=== PATIENT | male | born 1945 | race Caucasian/White ===

== ENCOUNTER 2017-12-06 12:10 | Emergency (ER) | payer MEDICARE, BC ==
[2017-12-06] MEDS ORDERED: Diph,Pert(Acell),Tet Vac 0.5 ML SYR IM ONE (12:28)
--- NOTE | 2017-12-06 12:30 | Emergency Department Record ---
History of Present Illness - General Chief Complaint: Wound, puncture Stated Complaint: PUNCTURE WOUND R FOREARM Time Seen by Provider: 12/06/17 12:23 Source: Patient Mode of Arrival: Ambulatory Limitations: No limitations - History of Present Illness Initial Commments: The patient is here due to a R forearm lac which occurred about 3-4 hours ago. He got it caught on a tailgate latch. He denies any distal R arm numbness or tingling. His Td is not UTD. Onset/Timin -: Hour(s) - [place] Coma Scale Eye Response: (4) Open spontaneously Motor Response: (6) Obeys commands Verbal Response: (5) Oriented Aime Total: 15 - Related Data Patient Tetanus UTD (within 5 yrs): No Previous Rx's Medication Instructions Recorded Gentamicin Sulfate [Garamycin] 2 drop AFFEYE QID #1 ml 09/03/15 Cephalexin [Keflex] 500 mg PO TID #21 cap 12/06/17 Allergies Allergy/AdvReac Type Severity Reaction Status Date / Time No Known Drug Allergies Allergy Verified 09/03/15 09:31 Travel Screening - Travel/Exposure Within Last 30 Days Have you traveled within the last 30 days?: No - Travel/Exposure Within Last Year Have you traveled outside the [place] in the last year?: No - Additonal Travel Details Have you been exposed to anyone with a communicable illness?: No - Travel Symptoms Symptom Screening: None Review of Systems Constitutional: Denies: Chills, Fever Eyes: Denies: Eye discharge ENT: Denies: Congestion Respiratory: Denies: Cough, Dyspnea Past Medical History - SOCIAL HISTORY Smoking Status: Former smoker Alcohol Use: None Drug Use: None - RESPIRATORY Hx Respiratory Disorders: Yes Hx COPD: Yes Comment:: with home O2 - CARDIOVASCULAR Hx Cardio Disorders: No - NEURO Hx Neuro Disorders: No - GI Hx GI Disorders: No - Hx Genitourinary Disorders: No - ENDOCRINE Hx Endocrine Disorders: No - MUSCULOSKELETAL Hx Musculoskeletal Disorders: Yes Hx Arthritis: Yes - PSYCH Hx Psych Problems: Yes Hx Anxiety: Yes Hx Depression: Yes - HEMATOLOGY/ONCOLOGY Hx Hematology/Oncology Disorders: No Family Medical History Any Significant Family History?: Yes Hx Alcohol Use: Father, Brother/Sister Physical Exam - General General Appearance: Alert, Cooperative, No acute distress - Head Head exam: Atraumatic, Normocephalic - Extremities Extremities exam: Full ROM, Tenderness (only around the lac site.). negative: Normal inspection (There is a 2 cm flap lac to the medial R forearm. The R arm is NVI distally. ), Joint swelling - Neurological Neurological exam: Alert. negative: Motor sensory deficit Course Vital Signs 12/06/17 12:15 Temperature 98.4 F Pulse Rate 70 Respiratory 18 Rate Blood Pressure 134/88 Pulse Ox 91 L - Reevaluation(s) Reevaluation #1: Procedure note: The R arm lac was anesth. with 3 cc's lido 1% with Epi. The lac was prepped with betadine and lavaged with sterile saline. The wound was explored and no FB or tendon or muscle lac was seen. The lac edges were minimally debrided and closed with 5 4.0 nylon sutures. There were no complications. 12/06/17 12:48 Disposition Disposition: Discharge Clinical Impression: Laceration of forearm Qualifiers: Encounter type: initial encounter Laterality: right Qualified Code(s): S51.811A - Laceration without foreign body of right forearm, initial encounter Disposition: Home, Self-Care Condition: (2) Stable Instructions: Laceration (ED) Additional Instructions: Keep the dressing in place and dry for 2 days then wash daily with no soaking or swimming. Take the Keflex as directed and have the sutures removed in 10 days. Return to the ER for any signs of infection. Prescriptions: Cephalexin [Keflex] 500 mg PO TID #21 cap Forms: Patient Portal Access Time of Disposition: 12:51 Quality - Quality Measures Quality Measures: N/A - Blood Pressure Screening View Details: Yes Does Patient Have Any of the Following: No Blood Pressure Classification: Pre-Hypertensive BP Reading Systolic Measurement: 134 Diastolic Measurement: 88 Screening for High Blood Pressure: < Pre-Hypertensive BP, F/U Documented > [ G8950] Pre-Hypertensive Follow-up Interventions: Referral to alternative/primary care provider.
== END 2017-12-06 13:05 | disposition home or self-care (01) ==
LOC: ER 12:10
DX: S51.811A Laceration without foreign body of right forearm, initial encounter (principal); W23.1XXA Caught, crushed, jammed, or pinched between stationary objects, initial encounter; J44.9 Chronic obstructive pulmonary disease, unspecified; Z99.81 Dependence on supplemental oxygen; Z87.891 Personal history of nicotine dependence
CPT/HCPCS: 12001; 90715; 96372; 99283

== ENCOUNTER 2019-01-26 13:36 | Emergency (ER) | payer MEDICARE ==
[2019-01-26] MEDS ORDERED: ALBUTEROL SULFATE (0.083%) 2.5 MG/3 ML NEB INH ONE (13:47)
[2019-01-26] MEDS ORDERED: IPRATROPIUM/ALBUTEROL (0.5MG/3MG) NEB INH ONE (13:47)
[2019-01-26] MEDS ORDERED: METHYLPREDNISOLONE PF 125MG/VIAL IVP ONE (13:47)
[2019-01-26] MEDS ORDERED: ALBUTEROL (0.5% CONCENTRATED) 2.5 MG/0.5 ML VIAL.NEB INH ONE ×2 (13:54→14:09)
[2019-01-26 14:02] LABS: ABSOLUTE NEUTROPHIL COUNT 19.32; BASO % 0.1 % (0-6); HEMATOCRIT 47.7 % (42.0-52.0); HEMOGLOBIN 14.4 gm/dl (14.0-18.0); LYMPH % 5.4 % (16-45); MEAN CELL VOLUME 97.7 fl (81-97); MEAN CORPUSCULAR HEMOGLOBIN 29.5 pg (27-33); MEAN CORPUSCULAR HGB CONC 30.2 g/dl (32-36); MEAN PLATELET VOLUME 10.2 fl (7.4-10.4); MONO % 7.5 % (0-9); PLATELET COUNT 291 K/uL (130-400); RED BLOOD COUNT 4.88 M/uL (4.40-5.70)
[2019-01-26 14:09] LABS: BLOOD UREA NITROGEN 18 mg/dL (8-23); CREATININE 0.7 mg/dL (0.7-1.2); EST GLOMERULAR FILTRATION RATE > 60 mL/min
[2019-01-26 14:10] LABS: TOTAL PROTEIN 8.1 g/dL (6.6-8.7)
[2019-01-26 14:12] LABS: GLUCOSE,RANDOM 127 mg/dL (74-109)
[2019-01-26 14:14] LABS: ALB/GLOB RATIO 1.2 (1.1-1.8); ALBUMIN 4.4 g/dL (4.0-5.0); ALT/SGPT 12 U/L (<41); AST/SGOT 23 U/L (10.0-50.0)
[2019-01-26 14:20] LABS: WHITE BLOOD COUNT W/O DIFF 22.2 K/uL (4.2-12.2)
--- NOTE | 2019-01-26 15:34 | Emergency Department Record ---
History of Present Illness - General Chief Complaint: Difficulty Breathing Time Seen by Provider: 01/26/19 13:41 Source: Patient, Family Mode of Arrival: Wheelchair Limitations: No limitations - History of Present Illness Initial Comments: pt came in for increasing sob since this am. he has a hx of copd. he wears 3.5 ltrs O2. he denies fevers MD Complaint: Cough, Shortness of breath Onset/Timin -: Days(s) Improves With: Bronchodilators Worsens With: Exertion Known History Of: COPD Associated Symptoms: Cough, Sputum production Treatments Prior to Arrival: Bronchodilator - Related Data Home Oxygen Therapy: Yes Home Oxygen Amount: 3 Liters Home Medications Medication Instructions Recorded Confirmed Last Taken Albuterol Sulfate 0.083% [Neb] 1 inh INH ASDIR 01/26/19 01/26/19 01/25/19 [Albuterol Sulfate] Citalopram Hydrobromide 20 mg PO DAILY 01/26/19 01/26/19 Unknown [Citalopram HBr] Previous Rx's Medication Instructions Recorded Amoxicillin/Potassium Clav 1 tab PO BID #20 tab 01/26/19 [Augmentin 875-125 Tablet] Allergies Allergy/AdvReac Type Severity Reaction Status Date / Time No Known Drug Allergies Allergy Verified 01/26/19 13:44 Travel Screening - Travel/Exposure Within Last 30 Days Have you traveled within the last 30 days?: No Review of Systems Reviewed: No additional complaints except as noted below Constitutional: Reports: As per HPI. Denies: Chills, Fever, Malaise, Night sweats, Weakness, Weight change Eyes: Reports: As per HPI. Denies: Eye discharge, Eye pain, Photophobia, Vision change ENT: Reports: As per HPI. Denies: Congestion, Dental pain, Ear pain, Epistaxis, Hearing loss, Throat pain Respiratory: Reports: As per HPI, Cough, Dyspnea. Denies: Hemoptysis, Stridor, Wheezes Cardiovascular: Reports: As per HPI. Denies: Arrhythmia, Chest pain, Dyspnea on exertion, Edema, Murmurs, Orthopnea, Palpitations, Paroxysmal nocturnal dyspnea, Rheumatic Fever, Syncope Endocrine: Reports: As per HPI. Denies: Fatigue, Heat or cold intolerance, Polydipsia, Polyuria Gastrointestinal: Reports: As per HPI. Denies: Abdominal pain, Constipation, Diarrhea, Hematemesis, Hematochezia, Melena, Nausea, Vomiting Genitourinary: Reports: As per HPI. Denies: Dysuria, Frequency, Hematuria, Incontinence, Retention, Testicular pain, Testicular mass, Urgency Musculoskeletal: Reports: As per HPI. Denies: Arthralgia, Back pain, Gout, Joint swelling, Myalgia, Neck pain Skin: Reports: As per HPI. Denies: Bruising, Change in color, Change in hair/nails, Lesions, Pruritus, Rash Neurological: Reports: As per HPI. Denies: Abnormal gait, Confusion, Headache, Numbness, Paresthesias, Seizure, Tingling, Tremors, Vertigo, Weakness Psychiatric: Reports: As per HPI. Denies: Anxiety, Auditory hallucinations, Depression, Homicidal thoughts, Suicidal thoughts, Visual hallucinations Hematological/Lymphatic: Reports: As per HPI. Denies: Anemia, Blood Clots, Easy bleeding, Easy bruising, Swollen glands Past Medical History - SOCIAL HISTORY Smoking Status: Former smoker Alcohol Use: None Drug Use: None - RESPIRATORY Hx Respiratory Disorders: Yes Hx COPD: Yes Comment:: with home O2 - CARDIOVASCULAR Hx Cardio Disorders: No - NEURO Hx Neuro Disorders: No - GI Hx GI Disorders: No - Hx Genitourinary Disorders: No - ENDOCRINE Hx Endocrine Disorders: No - MUSCULOSKELETAL Hx Musculoskeletal Disorders: Yes Hx Arthritis: Yes - PSYCH Hx Psych Problems: Yes Hx Anxiety: Yes Hx Depression: Yes - HEMATOLOGY/ONCOLOGY Hx Hematology/Oncology Disorders: No Family Medical History Any Significant Family History?: Yes Hx Alcohol Use: Father, Brother/Sister Physical Exam - General General Appearance: Alert, Oriented x3, Cooperative, Mild distress - Head Head exam: Normal inspection - Eye Eye exam: Normal appearance, PERRL, EOMI Pupils: Normal accommodation - ENT ENT exam: Normal exam, Mucous membranes moist, Normal external ear exam, Normal orophraynx Ear exam: Normal external inspection. negative: External canal tenderness Nasal Exam: Normal inspection. negative: Discharge, Sinus tenderness Mouth exam: Normal external inspection, Tongue normal Teeth exam: Normal inspection. negative: Dental caries Throat exam: Normal inspection. negative: Tonsillar erythema, Tonsillar exudate - Neck Neck exam: Normal inspection, Full ROM. negative: Tenderness - Respiratory Respiratory exam: Decreased breath sounds, Respiratory distress, Wheezes - Cardiovascular Cardiovascular Exam: Normal rhythm, Normal heart sounds, Tachycardia - GI/Abdominal GI/Abdominal exam: Soft, Normal bowel sounds. negative: Tenderness - Rectal Rectal exam: Deferred - exam: Deferred - Extremities Extremities exam: Normal inspection, Full ROM, Normal capillary refill. negative: Tenderness - Back Back exam: Reports: Normal inspection, Full ROM. Denies: Muscle spasm, Rash noted, Tenderness - Neurological Neurological exam: Alert, CN II-XII intact, Normal gait, Oriented X3 - Psychiatric Psychiatric exam: Normal affect, Normal mood - Skin Skin exam: Dry, Intact, Normal color, Warm Course Vital Signs 01/26/19 01/26/19 01/26/19 13:38 13:56 14:44 Temperature 98.4 F Pulse Rate 114 H 112 H Pulse Rate [ 106 H Maitre D' ] Respiratory 26 H 22 20 Rate Blood Pressure 143/89 Blood Pressure 105/56 [Right Arm] Pulse Ox 98 97 98 - Reevaluation(s) Reevaluation #1: 01/26/19 15:32 pt feels much better Reevaluation #2: 01/26/19 18:[address] show brochitis and nodule. Medical Decision Making - Lab Data Result diagrams: 01/26/19 13:43 01/26/19 13:43 Lab Results 01/26/19 01/26/19 01/26/19 Range/Units 13:43 13:43 13:43 WBC 22.2 H* (4.2-12.2) K/uL RBC 4.88 (4.40-5.70) M/uL Hgb 14.4 (14.0-18.0) gm/dl Hct 47.7 (42.0-52.0) % MCV 97.7 H (81-97) fl MCH 29.5 (27-33) pg MCHC 30.2 L (32-36) g/dl RDW 13.0 (11.5-14.5) % Plt Count 291 (130-400) K/uL MPV 10.2 (7.4-10.4) fl Neutrophils % 87.0 H (47-80) % Band Neutrophils % 2.0 (0-5) % Lymphocytes % 5.4 L (16-45) % Monocytes % 7.5 (0-9) % Eosinophils % 0.0 (0-6) % Basophils % 0.1 (0-6) % Absolute Neutrophils 19.32 Lymphocytes 5.0 L (16-45) % Monocytes 6.0 (0-9) % Basophils 0.0 (0-6) % Eosinophil Count 0.0 (0-6) % D-Dimer 0.49 (0-0.59) mg/L FEU Sodium 140 (136-145) mmol/L Potassium 4.4 (3.4-4.5) mmol/L Chloride 98 (98-107) mmol/L Carbon Dioxide 30.0 H (22-29) mmol/L Anion Gap 12.0 (7-16) BUN 18 (8-23) mg/dL Creatinine 0.7 (0.7-1.2) mg/dL Estimated GFR > 60 mL/min Random Glucose 127 H (74-109) mg/dL Calcium 9.5 (8.8-10.2) mg/dL Total Bilirubin 0.70 (0.2-1.0) mg/dL AST 23 (10.0-50.0) U/L ALT 12 (<41) U/L NT-Pro-B Natriuret Pep 108.40 (<125) pg/mL Total Protein 8.1 (6.6-8.7) g/dL Albumin 4.4 (4.0-5.0) g/dL Globulin 3.7 (1.4-4.8) gm/dL Albumin/Globulin Ratio 1.2 (1.1-1.8) Disposition Disposition: Discharge Clinical Impression: Acute exacerbation of chronic bronchitis COPD (chronic obstructive pulmonary disease) Qualifiers: COPD type: COPD with acute exacerbation Qualified Code(s): J44.1 - Chronic obstructive pulmonary disease with (acute) exacerbation Disposition: Home, Self-Care Condition: (1) Good Instructions: COPD (Chronic Obstructive Pulmonary Disease) (ED), Acute Bro nchitis (ED) Additional Instructions: follow up with family doctor. return sooner if worse. have repeat ct in 3 months of chest. Prescriptions: Amoxicillin/Potassium Clav [Augmentin 875-125 Tablet] 1 tab PO BID #20 tab Forms: Patient Portal Access Quality - Quality Measures Quality Measures: N/A - Blood Pressure Screening Does Patient Have Any of the Following: No Blood Pressure Classification: Pre-Hypertensive BP Reading Systolic Measurement: 143 Diastolic Measurement: 89 Screening for High Blood Pressure: < Pre-Hypertensive BP, F/U Documented > [G8950] Pre-Hypertensive Follow-up Interventions: Follow-up with rescreen every year.
[2019-01-26 17:06] LABS: ALKALINE PHOSPHATASE 104 U/L (40-129)
[2019-01-26] MEDS ORDERED: AMOXICILLIN/POTASSIUM CLAV 875MG/125MG TABLET PO ONE (18:25)
--- NOTE | 2019-01-28 12:42 | RADIOLOGY REPORT ---
EXAM: CHEST, TWO VIEWS HISTORY: SHORTNESS OF BREATH. TECHNIQUE: Two views of the chest were obtained. Comparison: 10/17/11. FINDINGS: The cardiomediastinal silhouette is normal in size. The aorta is heavily calcified. The lungs are hyperinflated with prominence of the interstitium. On lateral view, there is mass like prominence at the posterior aspect of the hilum measuring 5 cm. No consolidation, pleural effusion, or pneumothorax is seen. IMPRESSION: 1. LUNG HYPERINFLATION WITH INTERSTITIAL PROMINENCE LIKELY SECONDARY TO EMPHYSEMA. NO EVIDENCE FOR PNEUMONIA OR PULMONARY EDEMA. 2. 5 CM MASS LIKE OPACITY IN THE POSTERIOR HILUM ON LATERAL VIEW, WHICH MAY BE DUE TO ECTASIA/ANEURYSM OF THE THORACIC AORTA. A POSTERIOR HILAR MASS IS NOT EXCLUDED. CONTRAST ENHANCED CHEST CT IS RECOMMENDED FOR FURTHER EVALUATION. JOB NUMBER: [id number] MTDD
--- NOTE | 2019-01-28 13:03 | CT SCAN REPORT ---
EXAM: CT OF THE CHEST WITH CONTRAST HISTORY: DYSPNEA WITH ABNORMAL CHEST RADIOGRAPH. TECHNIQUE: Standard CT imaging of the chest was obtained following the intravenous administration of contrast. Comparison: None. FINDINGS: The aorta is normal without aneurysm or dissection. Unremarkable heart. No pericardial effusion. There is a mildly enlarged right hilar lymph node measuring up to 11 mm. No enlarged mediastinal lymph nodes. The visualized upper abdomen is unremarkable. No destructive osseous lesion is identified. Moderate centrilobular emphysema. Mild diffuse tree-in-bud nodularity throughout both lungs. More prominent nodularity at the right lung base. The nodules at the right lung base measure up to 8 mm. No pleural effusion or pneumothorax. IMPRESSION: 1. MILD DIFFUSE TREE-IN-BUD NODULARITY COMPATIBLE WITH SMALL AIRWAYS DISEASE MOST COMMONLY INFECTIOUS BRONCHIOLITIS. NODULARITY IS MORE PROMINENT AT THE RIGHT LUNG BASE AND FOLLOW-UP LOW DOSE CHEST CT IS RECOMMENDED IN THREE MONTHS TO INSURE RESOLUTION. 2. MILD RIGHT HILAR ADENOPATHY LIKELY REACTIVE GIVE THE ABOVE FINDINGS. THIS CAN BE FURTHER ASSESSED ON FOLLOW-UP CHEST CT. 3. NO SUSPICIOUS PERIHILAR OR MEDIASTINAL MASS. 4. MODERATE CENTRILOBULAR EMPHYSEMA. JOB NUMBER: [id number] [facility]
== END 2019-01-26 18:56 | disposition home or self-care (01) ==
LOC: ER 13:36
DX: J44.1 Chronic obstructive pulmonary disease with (acute) exacerbation (principal); J44.0 Chronic obstructive pulmonary disease with (acute) lower respiratory infection; J20.9 Acute bronchitis, unspecified; R06.02 Shortness of breath; Z87.891 Personal history of nicotine dependence; Z99.81 Dependence on supplemental oxygen
CPT/HCPCS: 71046; 71260; 80053; 83880; 85027; 85379; 93005; 93010; 94640; 94644; 96374; 99284; J2930